=== PATIENT | female | born 1995 | race Caucasian/White ===

== ENCOUNTER 2022-03-29 07:36 | Emergency (ER) | payer BC, OTHER ==
[2022-03-29] MEDS ORDERED: Ibuprofen 800 MG Tab PO ONE (08:07)
[2022-03-29] MEDS ORDERED: Bacitracin Oint 28.35 GM Tube TOP STA (08:07)
[2022-03-29] MEDS ORDERED: Acetaminophen 500 MG Tab PO ONE (08:07)
== END 2022-03-29 08:20 | disposition home or self-care (01) ==
LOC: FB.ED 07:36
DX: T22.112A Burn of first degree of left forearm, initial encounter (principal); Z88.0 Allergy status to penicillin; Z79.899 Other long term (current) drug therapy; X10.1XXA Contact with hot food, initial encounter; Y99.0 Civilian activity done for income or pay
CPT/HCPCS: 99283

== ENCOUNTER 2025-08-21 21:15 | Emergency (ER) | payer OTHER ==
[2025-08-21] MEDS ORDERED: Ondansetron 4 MG Tab.DIS PO ONE (21:16)
[2025-08-21] MEDS ORDERED: Acetaminophen/oxyCODONE 325-5 MG Tab PO ONE (21:16)
[2025-08-21] MEDS ORDERED: Sodium Chloride 0.9% 10 ML Syringe FLUSH PRN (21:37)
[2025-08-21] MEDS ORDERED: Naloxone 0.4 MG/ML SDV IVPUSH PRN (21:37)
[2025-08-21] MEDS: Ondansetron 4 MG/2 ML SDV IVPUSH ONE (21:45)
[2025-08-21] MEDS: HYDROmorphone 2 MG/ML SDV IVPUSH ONE (21:47)
[2025-08-21 22:11] LABS: MEAN PLATELET VOLUME 8.8 fL (7.1-12.4); PLATELET COUNT,PLT 404 x10(3)uL (151-488); RED BLOOD CELL COUNT 5.27 x10(6)uL (3.60-5.20); RED CELL DISTRIBUTION WIDTH 13.8 % (12.3-16.5); WHITE BLOOD CELL COUNT,WBC 18.8 x10-3/uL (3.0-10.3)
[2025-08-21 22:16] LABS: GLUCOSE,URINE NORMAL (NORMAL); OCCULT BLOOD,URINE MODERATE (NEGATIVE)
[2025-08-21 22:21] LABS: APPEARANCE,URINE SLIGHTLY CLOUDY (CLEAR); SQUAMOUS EPITHELIAL CELLS,UR FEW (NS,R,O)
[2025-08-21 22:24] LABS: BAND PERCENT MAN 5 % (0-6); EOSINOPHILS PERCENT MAN 3 % (0-5); LYMPHOCYTES PERCENT MAN 22 % (13-37); MONOCYTES PERCENT MAN 8 % (4-12); SEG NEUTROPHILS PERCENT MAN 62 % (46-82)
[2025-08-21 22:26] LABS: BLOOD UREA NITROGEN,BUN 11 mg/dL (7-18); CARBON DIOXIDE,CO2 24 mmol/L (21-32); CHLORIDE,CL 104 mmol/L (100-110); CREATININE 0.8 mg/dL (0.55-1.02); EST CRCL DRUG DOSING (CG) 90.41 mL/min; ESTIMATED GFR 103 mL/min (>60); GLUCOSE RANDOM 97 mg/dL (80-116); POTASSIUM,K 3.8 mmol/L (3.5-5.3); SODIUM,NA 139 mmol/L (135-145)
[2025-08-21] MEDS: Ketorolac 30 MG/ML SDV IVPUSH ONE (22:29)
[2025-08-21 22:32] LABS: A/G RATIO 0.9; ALANINE AMINOTRANSFERASE,ALT 36 U/L (12-36); ASPARTATE AMNIOTRANSFERASE,AST 26 IU/L (5-25); BILIRUBIN TOTAL 0.4 mg/dL (0.1-1.3); PROTEIN TOTAL,TP 7.5 g/dL (6.0-8.0)
== END 2025-08-21 23:50 | disposition home or self-care (01) ==
LOC: FB.ED 21:15
DX: N13.2 Hydronephrosis with renal and ureteral calculous obstruction (principal); E86.0 Dehydration; R03.0 Elevated blood-pressure reading, without diagnosis of hypertension; Z88.0 Allergy status to penicillin; F17.290 Nicotine dependence, other tobacco product, uncomplicated; Z79.84 Long term (current) use of oral hypoglycemic drugs; Z79.899 Other long term (current) drug therapy
CPT/HCPCS: 36415; 74176; 80053; 81001; 81025; 85025; 96361; 96374; 96375; 99284; A9270; J1171; J1885; J2405; J2765; J7030; Q0162